=== PATIENT | female | born 1995 ===

== ENCOUNTER 2018-01-30 18:57 | Emergency (ER) | payer BC ==
[~2018-01-30] VITALS: Ht 162.6 cm; Wt 61.2 kg
[2018-01-30 19:06] VITALS: TEMP 36.8; Ht 162.6 cm; Wt 61.2 kg
[2018-01-30] MEDS ORDERED: MAGNESIUM CITRATE 296 ML/BTL PO STA (20:31)
--- NOTE | 2018-01-30 20:33 | EMERGENCY ROOM VISIT NOTE ---
History Report prepared by Liban: Pal Hightower Under the Supervision of: Dr. Arik Rodriguez M.D. First contact with patient: 20:04 Chief Complaint: CONSTIPATION Stated Complaint: BURN IN URINATION, CONSTIPATION Nursing Triage Summary: Patient states "I have had vaginal burning when I urinate and I also have really bad constipation. My bowel movement is really slow." History of Present Illness The patient is a 22 year old female who presents to the Emergency Room with complaints of constant burning and pain with urination beginning two days ago. She currently rates her discomfort a 6/10 in severity. The patient states her LNMP ended 12 days ago. She reports she then had spotting for two days. The patient notes she then had a full period 5 days ago that lasted for two days. She states her period stopped 3 days ago, and she continued to spot for a day and developed UTI symptoms. The patient reports she was diagnosed with Herpes about 4 months ago and was evaluated by her PCP. She notes her PCP confirmed her diagnosis and was given Valtrex. The patient states she has not followed up with [facility] because she did not have time before her winter break ended. She notes she believes she had vaginal discharge without vaginal bleeding when diagnosed with her Herpes. The patient states she has a history of constipation and was given Linzess. She reports she has not been taking it because she ran out and cannot see her GI to get a refill. She notes she takes control and is sexually active. The patient states she just changed her control six weeks ago. The patient denies current sores. She notes she has not had a bowel movement in 3 days. Source of History: patient Onset: two days ago Symptom Intensity: 6/10 Quality: other (pain and burning with urination) Timing: constant Note: Associated symptoms: spotting, constipation Denies: sores Review of Systems See HPI for pertinent positives & negatives. A total of 10 systems reviewed and were otherwise negative. Past Medical & Surgical Medical Problems: (1) Constipation Family History Patient reports no known family medical history. Social History Smoking Status: Never Smoker Housing Status: lives with roommate Occupation Status: [employer] student Current/Historical Medications Scheduled Control Pills ( Control Pills), 1 TAB PO DAILY Ciprofloxacin Hcl (Cipro), 1 TAB PO BID Allergies Coded Allergies: No Known Allergies (Unverified , 01/30/18) Physical Exam Vital Signs Date Time Temp Pulse Resp B/P (MAP) Pulse Ox O2 Delivery O2 Flow Rate FiO2 01/30/18 21:46 66 18 116/80 99 01/30/18 20:44 67 16 121/85 98 Room Air 01/30/18 19:06 36.8 78 18 124/88 99 Room Air Physical Exam GENERAL: Awake, alert, well-appearing, in no acute distress HENT: Normocephalic, atraumatic. Oropharynx unremarkable. EYES: Normal conjunctiva. Sclera non-icteric. NECK: Supple. No nuchal rigidity. FROM. No JVD. RESPIRATORY: Clear to auscultation. CARDIAC: Regular rate, normal rhythm. Extremities warm and well perfused. Pulses equal. ABDOMEN: Soft, non-distended. No tenderness to palpation. No rebound or guarding. No masses. RECTAL: Deferred. PELVIC: Performed in the presence of a female nurse: Faint white discharge. Cervix is friable. MUSCULOSKELETAL: Chest examination reveals no tenderness. The back is symmetrical on inspection without obvious abnormality. There is no CVA tenderness to palpation. No joint edema. LOWER EXTREMITIES: Calves are equal size bilaterally and non-tender. No edema. No discoloration. NEURO: Normal sensorium. No sensory or motor deficits noted. SKIN: No rash or jaundice noted. Medical Decision & Procedures Laboratory Results Test 01/30/18 20:40 Urine Color YELLOW Urine Appearance CLEAR (CLEAR) Urine pH 7.5 (4.5-7.5) Urine Specific [place] 1.007 (1.000-1.030) Urine Protein NEG (NEG) Urine Glucose (UA) NEG (NEG) Urine Ketones NEG (NEG) Urine Occult Blood NEG (NEG) Urine Nitrite NEG (NEG) Urine Bilirubin NEG (NEG) Urine Urobilinogen NEG (NEG) Urine Leukocyte Esterase TRACE (NEG) Urine WBC (Auto) 1-5 /hpf (0-5) Urine RBC (Auto) 0-4 /hpf (0-4) Urine Hyaline Casts (Auto) 0 /lpf (0-5) Urine Epithelial Cells (Auto) >30 /lpf (0-5) Urine Bacteria (Auto) NEG (NEG) Urine Test NEG (NEG) Date/Time Source Procedure Growth Status 01/30/18 20:40 Cervix Swab Trichomonas Preparation - Final Complete Labs reviewed by ED physician. Medications Administered Medications (Trade) Dose Ordered Sig/Layla Route Start Time Stop Time Status Last Admin Dose Admin Magnesium Citrate (Citrate Of Magnesia Soln) 296 ml NOW STAT PO 01/30/18 20:31 01/30/18 20:33 DC 01/30/18 20:44 296 ML Ciprofloxacin (Cipro Tab) 500 mg NOW STAT PO 01/30/18 20:53 01/30/18 20:55 DC 01/30/18 21:15 500 MG Ciprofloxacin (Cipro 500MG Home Pack) 1 homepa UD STAT PO 01/30/18 21:27 01/30/18 21:28 DC 01/30/18 21:31 1 [facility] ED Course 2004: Past medical records reviewed. The patient was evaluated in room C12B. A complete history and physical examination was performed. 2030: Ordered Magnesium Citrate 296ml PO 2052: Ordered Ciprofloxacin 500mg PO 2058: Upon reexamination the patient is resting. I performed a pelvic exam in the presence of a female nurse. I discussed results and treatment plan with the patient. She verbalizes agreement and understanding. The patient is ready for discharge. Medical Decision Etiologies such as appendicitis, diverticulitis, PUD, biliary pathology, UTI, pancreatitis, obstruction, mesenteric ischemia, aortic pathology, infections, inflammatory bowel disease, renal colic, as well as others were entertained. This is a 22-year-old female who presents emergency department with a number of complaints. I attempted to talk to this patient's mother however the patient stopped me from continuing to talk with her mother. She has a number of complaints including urinary tract symptoms as well as vaginal spotting as well as constipation. I will note that the patient has gone through a number of medication changes in the past month and week. She has stopped her Linzess which is what I suspect is causing her constipation. She also changed her control in the past month which is what I suspect is causing her vaginal spotting. The patient's mother does not wish for the patient to have any radiation. I did recommend laboratory work as well as a KUB which the patient refused. I also recommended an IM shot of antibiotics. The patient is also refusing this. As there are some white blood cells in her urine I will place the patient on Cipro pending pelvic results. Medication Reconcilliation Current Medication List: was personally reviewed by me Blood Pressure Screening Patient's blood pressure: Normal blood pressure Blood pressure disposition: Did not require urgent referral Impression Primary Impression: Constipation Additional Impression: Urinary tract infection Scribe Attestation The scribe's documentation has been prepared under my direction and personally reviewed by me in its entirety. I confirm that the note above accurately reflects all work, treatment, procedures, and medical decision making performed by me. Departure Information Dispostion Home / Self-Care Prescriptions Ciprofloxacin Hcl (CIPRO) 500 Mg Tab 1 TAB PO BID for 7 Days, #14 TAB Prov: Arik Rodriguez MD 01/30/18 Referrals [facility] Chaka Granda M.D. Forms HOME CARE DOCUMENTATION FORM, IMPORTANT VISIT INFORMATION, School Instructions, Work Instructions Patient Instructions ED Bleed Irregular Vaginal, ED Constipation, ED UTI Cystitis Female, My [facility] Additional Instructions Follow up with Dr Granda's office for vag discharge Take 1/2 bottle of Mag Citrate Repeat second half in six hours Take 10 oz bottle of miralax; Add to 16 oz of gatorade Drink continuously until moving creamy stools Clear liquid diet for next 48 hours Return if you develop fevers or pain worsens Follow up with Peds. Culture results are usually ready within 48 hours You have been examined and treated today on an emergency basis only. This is not a substitute for, or an effort to provide, complete comprehensive medical care. It is impossible to recognize and treat all injuries or illnesses in a single emergency department visit. It is therefore important that you follow up closely with [facility]. Call as soon as possible for an appointment. Thank you for your time and consideration. I look forward to speaking with you again soon. Please don't hesitate to call us if you have any questions. Problem Qualifiers Primary Impression: Constipation Constipation type: unspecified constipation type Qualified Codes: K59.00 - Constipation, unspecified Additional Impression: Urinary tract infection Urinary tract infection type: site unspecified Hematuria presence: without hematuria Qualified Codes: N39.0 - Urinary tract infection, site not specified
[2018-01-30] MEDS ORDERED: BCPILLS PO (20:35)
[2018-01-30] MEDS ORDERED: CIPROFLOXACIN 500 MG TAB PO STA (20:53)
[2018-01-30] MEDS ORDERED: CIPR-255 PO (20:57)
[2018-01-30] MEDS ORDERED: CIPROFLOXACIN 500MG HOME PACK PO STA (21:27)
[2018-01-30 21:46] VITALS: BP 116/80; PULSE 66; O2SAT 99
== END 2018-01-30 21:35 | disposition home or self-care (01) ==
LOC: C.EDB 18:59 → C.EDC 21:35
DX: K59.00 Constipation, unspecified (principal); N39.0 Urinary tract infection, site not specified; Z79.3 Long term (current) use of hormonal contraceptives